=== PATIENT | female | born 2000 | race Hispanic/Latino ===

== ENCOUNTER 2023-07-08 03:38 | Inpatient (IN) | payer BC ==
--- OUTSIDE RECORDS SUMMARY | ~2023-07-08 | XMS | Continuity of Care Document ---
Demographics + + + | Address | [address] | | | [place] [address] | + + + | Preferred Language | Unknown | + + + | Marital Status | | + + + | Jain Affiliation | Unknown | + + + | Race | Unknown | + + + | Ethnic Group | Unknown | + + + Author + + + | Author | [facility] | + + + | Organization | [facility] | + + + | Address | [address] | | | [place] [address] | + + + | Phone | | + + + Care Team Providers + + + + | Care Washing Machine Assembler Name | Role | Phone | + + + + Unavailable | Unavailable | + + + + Allergies No information. Encounters No information. Functional Status No information. Immunizations No information. Medications No information. Problems + + + + | date | description | facility | + + + + | 2022-12-17 13:52 | [facility] | [facility] | | | NORMAL FIRST PREG, FIRST | | | | [facility] | | + + + + | 2022-12-17 13:52 | 9 WEEKS GESTATION OF | [facility] | | | | | + + + + | 2023-04-07 10:00 | ABNORMAL ULTRASONIC | [facility] | | | FINDING ON | | | | SCREENING OF MOTHER | | + + + + | 2023-06-28 11:13 | ANTEPARTUM HEMORRHAGE, | [facility] | | | UNSPECIFIED, THIRD | | | | [facility] | | + + + + | 2023-06-28 11:13 | 30 WEEKS GESTATION OF | [facility] | | | | | + + + + | 2023-06-29 17:33 | [facility] | [facility] | | | NORMAL PREG, UNSP, THIRD | | | | [facility] | | + + + + | 2023-06-29 17:33 | 30 WEEKS GESTATION OF | [facility] | | | | | + + + + Procedures No information. Results/Labs No information. Social History No information. Vital Signs No information."
[2023-07-08 11:08] LABS: HEMATOCRIT 40.8 % (35.0-50.0); HEMOGLOBIN 13.6 g/dL (12.0-18.0); MCH 30.9 (27-36); MCHC 33.4 g/dl (30-36); MCV 92.6 fl (81-99); RBC 4.41 M/ul (4.3-5.7); RDW 13.7 (10.5-15.0)
[2023-07-08 11:14] LABS: AMPHETAMINES, UR NEGATIVE (NEGATIVE); BARBITURATES, UR NEGATIVE (NEGATIVE); BENZODIAZEPINES, UR NEGATIVE (NEGATIVE); BUPRENORPHINE,UR NEGATIVE (NEGATIVE); COCAINE, UR NEGATIVE (NEGATIVE); MARIJUANA (THC), UR NEGATIVE (NEGATIVE); MDMA, UR NEGATIVE (NEGATIVE); METHADONE, UR NEGATIVE (NEGATIVE); METHAMPHETAMINE, UR NEGATIVE (NEGATIVE); OPIATES, UR NEGATIVE (NEGATIVE); OXYCODONE, UR NEGATIVE (NEGATIVE); PHENCYCLIDINE, UR NEGATIVE (NEGATIVE); TRICYCLIC ANTIDEPRESSANT, UR NEGATIVE (NEGATIVE)
[2023-07-08 11:47] LABS: ABO AB; RH NEGATIVE
[2023-07-08 11:48] LABS: ANTIBODY SCREEN POSITIVE
[2023-07-08 12:38] LABS: ANTIBODY IDENTIFICATION ANTI-D
--- NOTE | 2023-07-08 13:56 | PR ---
[facility] [address] [place], [place] [address] Signed Progress Notes IP Datetime Report Generated by CPN: 07/08/2023 13:56 PROGRESS NOTES: [id number] Impression: Normal Progression of Labor Procedures: Artificial ROM; Sterile Vag Exam Plan: Continue Present Management Informed Consent Obtain: Vaginal Delivery VITAL SIGNS: [id number] Vital Signs: Reviewed; Within Normal Limits EXAM: [id number] Dilatation: 7.0 Effacement: 90 Station: -1 Contractions: every 2-3 min MEMBRANES: [id number] Comments: S: Pt well lying comfortably in bed. No concerns or complaints. O: SVE - /-1 FHT - CAT I, toco q 2-3 A/P: Pattient well. Will monitor HR. AROM with clear fluid at this time. Plan for vaginal delivery. FETUS A: [id number] FHR Baseline: 140 Variability: Moderate 6-25bpm Accelerations: 15X15 Decelerations: None FHR Category: Category I Presentation: Vertex FETUS B: [id number] Signing Physician: Ronna Guillermo MD Copies: ~ *Electronically Signed* 07/08/23 1356 RONNA GUILLERMO MD PATIENT NAME: ADAN CEDENO PROGRESS NOTE DATE OF : 99 PHYSICIAN: RONNA GUILLERMO MD RPT #: [id number] REPORT IS CONFIDENTIAL AND NOT TO BE RELEASED WITHOUT AUTHORIZATION
--- NOTE | 2023-07-08 14:52 | PR ---
[facility] [address] [place], [place] [address] Signed Progress Notes IP Datetime Report Generated by MIRIAM: 07/08/2023 14:52 PROGRESS NOTES: [id number] Impression: Normal Progression of Labor Procedures: Intrauterine Pressure Catheter; Scalp Electrode; Sterile Vag Exam Plan: Continue Present Management Informed Consent Obtain: Vaginal Delivery VITAL SIGNS: [id number] Vital Signs: Reviewed; Within Normal Limits EXAM: [id number] Dilatation: 7.0 Effacement: 90 Station: -1 Contractions: every 2-3 min MEMBRANES: [id number] Comments: S: Pt well lying comfortably in bed. No concerns or complaints. O: SVE - /-1 FHT - CAT I, toco q 2-3 A/P: Pattient well. Will monitor HR. AROM with clear fluid at this time. Plan for vaginal delivery. FETUS A: [id number] FHR Baseline: 140 Variability: Moderate 6-25bpm Accelerations: 15X15 Decelerations: None FHR Category: Category I Presentation: Vertex FETUS B: [id number] Signing Physician: Ronna Guillermo MD Copies: ~ *Electronically Signed* 07/08/23 1452 RONNA GUILLERMO MD PATIENT NAME: ADAN CEDENO PROGRESS NOTE DATE OF : 99 PHYSICIAN: RONNA GUILLERMO MD RPT #: [id number] REPORT IS CONFIDENTIAL AND NOT TO BE RELEASED WITHOUT AUTHORIZATION
--- NOTE | 2023-07-09 01:16 | NUR ---
Tucks given as ordered but barcode not recognized by scanner "medication not in pt's profile" Pharmacy notified of inability to manually enter medication. medication packaging is different than before. Tucks by Marquez. Box left in nurses station to send to pharmacy to adjust new barcode.
[2023-07-09 05:33] LABS: HEMOGLOBIN 9.7 g/dL (12.0-18.0)
[2023-07-09 05:35] LABS: HEMATOCRIT 28.4 % (35.0-50.0); MCH 31.8 (27-36); MCHC 34.2 g/dl (30-36); MCV 92.9 fl (81-99); RBC 3.06 M/ul (4.3-5.7); RDW 13.6 (10.5-15.0)
[2023-07-09 07:10] LABS: ABO AB
[2023-07-09 07:11] LABS: ANTIBODY SCREEN POSITIVE; FETAL HEMOGLOBIN SCREEN NEGATIVE; RH NEGATIVE; RHIG VIAL 1 NOT A CANDIDATE
[2023-07-09 07:13] LABS: ANTIBODY IDENTIFICATION ANTI-D
--- NOTE | 2023-07-09 10:28 | NUR ---
MOM SLEEPING IN BED. DAD IN CHAIR. GRANDMOTHER ON COUCH. BABY RESTING QUIETLY IN DAD'S ARMS. DENIED NEEDS. DECLINED PRAYER AT THIS TIME.
--- NOTE | 2023-07-09 10:32 | PR ---
[facility] [address] [place], [place] [address] Signed PP Progress Notes Datetime Report Generated by CPN: 07/09/2023 10:32 SUBJECTIVE: [id number] Pain: Within Normal Limits Nausea/Vomiting: Denies Bowel Movement: No Vital Signs: [id number] Vital Signs: Reviewed; Within Normal Limits EXAM: Ongoing Abdomen/Uterus: Normal Lochia: Normal Extremities: Normal Progress: Normal IMPRESSION/PLAN/PROCEDURES: [id number] Impression: Normal Progression Plan: Continue Present Management Procedures: None Progress Notes: S: 26 yo s/p vaginal delivery, PPD #1. Doing well. Denies MCCORD, CP, SOB, F/C, N/V, RUQ pain, changes in vision, vaginal discharge. Tolerating normal diet, ambulating, voiding on own, pain controlled. O: AFVSS Abdomen: Soft, fundus firm/non tender/below umbilicus. Musc: STONE, no edema. A/P: 23 yo s/p vaginal delivery, doing well. Continue care. Likely discharge home tomorrow. Signing Physician: Ronna Galloway MD Copies: ~ *Electronically Signed* 07/09/23 1032 RONNA GALLOWAY MD PATIENT NAME: ADAN CEDENO PROGRESS NOTE DATE OF : 99 PHYSICIAN: RONNA GALLOWAY MD RPT #: [id number] REPORT IS CONFIDENTIAL AND NOT TO BE RELEASED WITHOUT AUTHORIZATION
--- NOTE | 2023-07-10 10:56 | PR ---
[facility] [address] [facility] [place], [place] [address] Signed PP Progress Notes Datetime Report Generated by CPN: 07/10/2023 10:56 SUBJECTIVE: [id number] Pain: Within Normal Limits Nausea/Vomiting: Denies Flatus: Yes Bowel Movement: Yes Vital Signs: [id number] Vital Signs: Reviewed; Within Normal Limits EXAM: Ongoing Abdomen/Uterus: Normal Lochia: Normal Extremities: Normal Progress: Normal IMPRESSION/PLAN/PROCEDURES: [id number] Impression: Normal Progression Plan: Discharge Procedures: None Progress Notes: 23 yo s/p vaginal delivery, PPD #2. Doing well. Denies MCCORD, CP, SOB, F/C, N/V, RUQ pain, changes in vision, vaginal discharge. Tolerating regular diet, ambulating, voiding, +BM, pain controlled. No concerns or complaints. O: AFVSS Abdomen: Fundus firm. Below umbilicus. Non tender. Musc; STONE. No edema. A/P: 23 yo s/p vaginal delivery, PPD #2. Doing well. Meeting all hospital milestones. Will discharge home. Signing Physician: Ronna Galloway MD Copies: ~ *Electronically Signed* 07/10/23 1056 RONNA GALLOWAY MD PATIENT NAME: ADAN CEDENO PROGRESS NOTE DATE OF : 99 PHYSICIAN: RONNA GALLOWAY MD RPT #: [id number] REPORT IS CONFIDENTIAL AND NOT TO BE RELEASED WITHOUT AUTHORIZATION
== END 2023-07-10 13:35 | disposition home or self-care (01) | DRG 806 ==
LOC: FBCO 03:38 → FBC 10:30
PROVIDERS: ADMIT Obstetrics & Gynecology; ATTEND Obstetrics & Gynecology
PROC: 10E0XZZ Delivery of Products of Conception, External Approach (ICD-10-PCS; principal; 2023-07-08)
PROC: 10H07YZ Insertion of Other Device into Products of Conception, Via Natural or Artificial Opening (ICD-10-PCS; 2023-07-08)
PROC: 4A1HXCZ Monitoring of Products of Conception, Cardiac Rate, External Approach (ICD-10-PCS; 2023-07-08)
PROC: 3E033VJ Introduction of Other Hormone into Peripheral Vein, Percutaneous Approach (ICD-10-PCS; 2023-07-08)
PROC: 10907ZC Drainage of Amniotic Fluid, Therapeutic from Products of Conception, Via Natural or Artificial Opening (ICD-10-PCS; 2023-07-08)
PROC: 0UQMXZZ Repair Vulva, External Approach (ICD-10-PCS; 2023-07-08)
DX: O99.354 Diseases of the nervous system complicating childbirth (principal); G10 Huntington's disease; Z37.0 Single live birth; O70.0 First degree perineal laceration during delivery; Z67.31 Type AB blood, Rh negative; Z3A.39 39 weeks gestation of pregnancy
CPT/HCPCS: 01960; 36415; 59025; 83030; 85027; 86850; 86870; 86900; 86901; A9270; J2405; J2590; J2790; J2795; J7121